=== PATIENT | female | born 1995 | race Caucasian/White ===

== ENCOUNTER 2024-01-27 16:07 | Inpatient (IN) ==
[2024-01-27] MEDS ORDERED: LIDOCAINE 1% LOCAL 20 ML VIAL INFIL PRN (16:12)
[2024-01-27] MEDS ORDERED: CALCIUM CARBONATE 500 MG CHEWABLE TAB PO PRN (16:12)
[2024-01-27] MEDS ORDERED: OXYTOCIN 30 UNITS/NSS 30 UNITS/500 ML BAG IV PRN (16:12)
--- NOTE | 2024-01-27 16:21 | History & Physical Report ---
Date of Service January 27, 2024 Assessment & Plan (1) Encounter for induction of labor: Plan: Admit for induction of labor Place denis balloon Pitocin arom when indicated consult for epidural placed monitor tracing, category 1 Admission and Anticipated Discharge Date Admission Date: January 27, 2024 History of Present Illness Primary Care Provider: Helena Churchill MD 28 yo at 41w2d admitted for IOL for post dates. Denies WILLS, CP, SOB, N/V/D, LE pain. GBS neg, RH+, Rubella immune, +FM, -LOF, +CTX Allergies Allergy/AdvReac Type Severity Reaction Status Date / Time No Known Allergies AdvReac Unknown Verified 01/26/24 10:47 Home Medications Medication Instructions Recorded Confirmed Type valacyclovir 500 mg tablet 500 mg PO TID PRN recurrent 11/18/20 01/26/24 History episodes aspirin 81 mg tablet,delayed 81 mg PO DAILY 05/26/23 01/26/24 History release (Adult Low Dose Aspirin) vit 168-iron 27 mg-folic cap PO 05/26/23 01/26/24 History acid 800 mcg-omega3 235 mg capsule (One-A-Day -1) metoclopramide HCl 10 mg tablet 10 mg PO Q6H PRN nausea and 08/05/23 01/26/24 Rx (Reglan) vomiting #7 tabs valacyclovir 500 mg tablet 500 mg PO BID #60 tabs 12/10/23 01/26/24 Rx (Valtrex) ondansetron HCl 4 mg tablet 4 mg PO Q6H PRN nausea and 12/17/23 01/26/24 Rx vomiting #30 tabs Patient History Medical History (Updated 01/27/24 @ 17:53 by Nadia Anaya MD) Nicotine addiction Hiccups Cerebral aneurysm Rhinitis Narcolepsy without cataplexy Surgical History (Updated 05/22/22 @ 09:53 by Helena Churchill MD) H/O inguinal hernia repair History of cerebral aneurysm Anterior Communicating Artery, s/p surgical repair Family History (Updated 05/26/23 @ 10:54 by Agustina Rendon) Grandmother (Paternal) Brain tumor Social History (Updated 05/26/23 @ 10:55 by Agustina Rendon) Smoking Status: Current every day smoker Tobacco Type: E-cigarettes / Vaping Cigarettes Per Day: 1 ppd; Second Hand Exposure: Yes; Do You Dip or Chew Tobacco: No; Tobacco Cessation Education Requested by Patient: No Hx Alcohol Use: No Hx Substance Use: No Preferred Language: Luxembourgish Communication Ability: Effective Project Product Manager Required: No Beliefs That Will Affect Care: None marital status: Single marital status details: Amanda (27) [phone] Current Living Situation: Significant Other Current Living Situation Comment: [facility] current occupational status: employed 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 Skin: warm, dry, intact HEENT: NC/AT, anicteric sclera, conjunctiva without injection, moist mucus membranes Heart: +S1/S2, regular, no m/r/g Lungs: equal air entry bilaterally, no rales/rhonchi/wheezes Abd: +BS, soft, NT, gravid uterus Cervical: see attending documentation Ext: warm, no clubbing/cyanosis or edema Neuro: nonfocal, speech intact, no facial droop, moving all extremities. : FHR baseline 130-140, moderate variability, accelerations present, decelerations absent Supervising Physician Co-Signing Physician Notes 28 yo at 41 2/7 wga presents for late term IOL. Started having some painful back ctx and small amount of bleeding. +FM; denies LOF. PNI: Hx HSV on valtrex, hx brain aneuysm s/p neuro surg - ok for vaginal delivery, narcolepsy. Fetus cat 1, irreg ctx. SSE no obvious hsv lesions, SVE 275/-2. EFW 7-8. 35cc denis bulb placed, will start pit. SSE benign, pt denies prodromal symptoms. GBS neg, epidural prn Resident Activity Tracking Resident Involvement: Resident Care Provided Care Provided: Adult [facility] Medicine
[2024-01-27 17:07] LABS: Hemoglobin 12.5 g/dl (12.0-16.0); Mean Corpuscular Hemoglobin 30.6 pg (25.0-34.0); Mean Corpuscular Hgb Conc 34.7 g/dL (32.0-36.0); Mean Platelet Volume 13.1 fL (9.4-12.4); Platelet Count 175 K/uL (130-400); RDW Coefficient of Variation 13.4 % (11.5-14.5); RDW Standard Deviation 43.2 fL (36.4-46.3); Red Blood Count 4.09 M/uL (4.20-5.40); White Blood Count 16.08 K/ul (4.8-10.8)
[2024-01-27] MEDS: LACTATED RINGER'S 1,000 ML IV PRN (17:50)
[2024-01-27] MEDS: ACETAMINOPHEN 325 MG TAB PO PRN (17:56)
[2024-01-27] MEDS: OXYTOCIN 30 UNITS/NSS 30 UNITS/500 ML BAG IV PRN (18:12)
[2024-01-27] MEDS ORDERED: diphenhydrAMINE 50 MG/ML VIAL IV PRN (18:55)
[2024-01-27] MEDS ORDERED: ROPIVACAINE 0.5% PF 5 MG/ML 20 ML VIAL EPI PRN (18:55)
[2024-01-27] MEDS ORDERED: NALBUPHINE HCL 5 MG in SYRINGE 0 ML IV PRN (18:55)
[2024-01-27] MEDS ORDERED: BUPIVACAINE 0.25% PF 30 ML VIAL EPI PRN (18:55)
[2024-01-27] MEDS ORDERED: LIDOCAINE 2% MPF LOCAL 5 ML VIAL EPI PRN (18:55)
[2024-01-27] MEDS ORDERED: NALOXONE HCL 0.4 MG/1 ML VIAL/CARP IV PRN (18:55)
[2024-01-27] MEDS ORDERED: fentANYL 2 MCG/ML BUPIVacaine 0.125%-NSS 100ML BAG EPI PRN (18:55)
[2024-01-27] MEDS ORDERED: ePHEDrine sulfate 50 MG/ML AMP IV PRN (18:55)
[2024-01-27] MEDS ORDERED: SODIUM CHLORIDE 0.9% PF INJ 10 ML VIAL EPI PRN (18:55)
[2024-01-27] MEDS ORDERED: fentaNYL citrate PF 100 MCG/2 ML VIAL EPI PRN (18:55)
[2024-01-27] MEDS ORDERED: NALOXONE HCL 1 MG in SODIUM CHLORIDE 0.9% 1,000 ML IV PRN (18:55)
--- NOTE | 2024-01-27 18:55 | Anesthesiology Consultation ---
Date of Service January 27, 2024 Assessment & Plan (1) Encounter for pre-operative examination: Chart Review Chart Review: Patient NOT seen in Pre Admission Testing and Acceptable Risk for Labor Epidural Consults Requested none History Height/Weight Height: 5 ft 4 in Weight: 81.647 kg Allergies Allergy/AdvReac Type Severity Reaction Status Date / Time No Known Allergies AdvReac Unknown Verified 01/26/24 10:47 Medications Home Medications Medication Instructions Recorded Confirmed Last Taken vit 168-iron 27 mg-folic cap PO 05/26/23 01/26/24 01/27/24 08:00 acid 800 mcg-omega3 235 mg capsule (One-A-Day -1) valacyclovir 500 mg tablet 500 mg PO BID #60 tabs 12/10/23 01/27/24 01/27/24 08:00 (Valtrex) Active Medications Generic Name Dose Route Start Last Admin Trade Name Freq PRN Reason Stop Dose Admin Acetaminophen 650 mg 01/27/24 16:12 01/27/24 17:56 Acetaminophen 325 Mg Tab PO 02/26/24 16:11 650 mg Q6H PRN Administration Pain Oxytocin 30 units in 500 mls @ 2 mls/hr 01/27/24 16:12 01/27/24 18:12 Pitocin 30 Units/Nss IV 01/29/24 16:11 0.12 units/hr .Q24H PRN 2 mls/hr Labor Induction/Augmentation Administration Protocol 0.12 UNITS/HR Lactated Ringer's 1,000 mls @ 125 mls/hr 01/27/24 16:12 01/27/24 18:30 Lr IV 01/29/24 16:11 999 mls/hr .Q8H PRN Infusion L&D Protocol Protocol Past Medical History Medical History Nicotine addiction Hiccups Cerebral aneurysm Rhinitis Narcolepsy without cataplexy Past Family History Family History Grandmother (Paternal) Brain tumor Past Surgical History Surgical History H/O inguinal hernia repair History of cerebral aneurysm Anterior Communicating Artery, s/p surgical repair Social History Smoking Status: Current every day smoker tobacco type: e-cigarettes Smoking cigarettes per day: 1 ppd Do You Dip or Chew Tobacco: No Hx Alcohol Use: No Hx Substance Use: No Physical Exam Vital Signs Last Vital Signs Temp 98.6 F 01/27/24 16:43 Pulse 72 01/27/24 18:52 Resp 18 01/27/24 16:43 BP 129/60 01/27/24 18:52 Pulse Ox 100 01/27/24 18:51 Testing Laboratory Results 01/27/24 16:34
[2024-01-27] MEDS: fentANYL 2 MCG/ML BUPIVacaine 0.125%-NSS 100ML BAG ONE (19:22)
[2024-01-27] MEDS: LIDOCAINE 2%/EPINEPHRINE 1:200,000 20 ML PF ONE (19:24)
[2024-01-27] MEDS: BUPIVACAINE 0.25% PF 30 ML VIAL ONE (20:08)
[2024-01-27] MEDS: fentaNYL citrate PF 100 MCG/2 ML VIAL ONE (20:10)
[2024-01-27] MEDS: ePHEDrine sulfate 50 MG/ML AMP ONE (20:10)
[2024-01-27] MEDS: SODIUM CHLORIDE 0.9% PF INJ 10 ML VIAL EPI STA (20:11)
[2024-01-27] MEDS: SODIUM CHLORIDE 0.9% PF INJ 10 ML VIAL ONE (20:11)
[2024-01-27] MEDS: fentaNYL citrate PF 100 MCG/2 ML VIAL EPI STA (20:11)
[2024-01-27] MEDS: BUPIVACAINE 0.25% PF 30 ML VIAL EPI STA (20:11)
[2024-01-27] MEDS: LIDOCAINE 2%/EPINEPHRINE 1:200,000 20 ML PF EPI STA (20:11)
--- NOTE | 2024-01-27 22:46 | Labor Progress Brief Note ---
Date of Service January 27, 2024 Subjective Comfortable w/ epidural Assessment & Plan (1) Encounter for induction of labor: (2) Post-term : Plan 28 yo at 41 2/7 wga presents for late term iol VSS Fetus cat 1 Labor - good progress, now s/p arom GBS neg epidural in place Admission and Anticipated Discharge Date Admission Date: January 27, 2024 Physical Exam Genitourinary: Manual OB Exam: + cervical dilation 5 cm, + cervical effacement 90%, + station -2 and + amniotic fluid clear OB Exam Monitor Tracing: + external FHT monitor used, + external uterine monitor used (q3-5) and + category I (135/mod/+accel/+early) Results & Data Vital Signs (Past 12 Hours) Vital Signs Temp Pulse Resp BP Pulse Ox 01/27/24 22:41 94 H 98 01/27/24 22:36 95 H 98 01/27/24 22:31 98 01/27/24 22:31 90 01/27/24 22:31 84 119/85 01/27/24 22:26 76 98 01/27/24 22:21 86 98 01/27/24 22:17 69 121/85 01/27/24 22:16 65 97 01/27/24 22:11 88 98 01/27/24 22:06 67 99 01/27/24 22:02 70 109/75 01/27/24 22:01 71 98 01/27/24 22:00 18 01/27/24 22:00 18 01/27/24 21:56 87 97 01/27/24 21:51 77 98 01/27/24 21:47 92 H 112/72 01/27/24 21:46 93 H 97 01/27/24 21:41 91 H 97 01/27/24 21:36 86 98 01/27/24 21:32 77 109/67 01/27/24 21:31 79 98 01/27/24 21:30 18 01/27/24 21:30 18 01/27/24 21:26 79 98 01/27/24 21:21 76 97 01/27/24 21:16 79 116/67 98 01/27/24 21:11 78 99 01/27/24 21:06 81 98 01/27/24 21:01 97 01/27/24 21:01 78 01/27/24 21:01 84 108/61 01/27/24 21:00 18 01/27/24 21:00 18 01/27/24 20:56 78 98 01/27/24 20:51 86 97 01/27/24 20:47 65 106/62 01/27/24 20:46 74 98 01/27/24 20:41 73 100 01/27/24 20:36 73 99 01/27/24 20:31 98 01/27/24 20:31 85 01/27/24 20:31 74 122/68 01/27/24 20:30 18 01/27/24 20:30 18 01/27/24 20:26 63 99 01/27/24 20:21 65 99 01/27/24 20:17 74 119/72 01/27/24 20:16 63 100 01/27/24 20:11 77 99 01/27/24 20:06 74 98 01/27/24 20:01 79 111/60 98 01/27/24 20:00 18 01/27/24 20:00 18 01/27/24 19:56 72 98 01/27/24 19:51 63 98 01/27/24 19:46 72 127/80 98 01/27/24 19:41 75 98 01/27/24 19:36 73 99 01/27/24 19:31 70 98 01/27/24 19:30 18 01/27/24 19:30 98.1 F 18 01/27/24 19:26 81 98 01/27/24 19:21 97 01/27/24 19:21 76 01/27/24 19:21 79 132/89 01/27/24 19:16 77 98 01/27/24 19:11 81 99 01/27/24 19:07 71 01/27/24 19:06 92 H 99 01/27/24 19:01 89 100 01/27/24 18:56 64 99 01/27/24 18:52 72 129/60 01/27/24 18:51 64 100 01/27/24 18:37 73 125/84 01/27/24 18:23 68 138/93 01/27/24 17:52 67 126/75 01/27/24 16:47 68 149/94 H 01/27/24 16:43 98.6 F 18 Coding Level of Care Code None Diagnoses Encounter for induction of labor Z34.90 Post-term O48.0
[2024-01-27] MEDS: FAMOTIDINE 20 MG TAB PO SCH (23:12)
--- NOTE | 2024-01-28 04:13 | Delivery Summary ---
Vaginal Delivery Summary Date of Service January 28, 2024 Vaginal Delivery Summary [facility] PREOPERATIVE DIAGNOSIS: 1. Single intrauterine at 41 3/7 wga 2. Late term IOL POSTOPERATIVE DIAGNOSIS: 1. Single intrauterine at 41 3/7 wga 2. Late term IOL 3. Delivered PROCEDURE: 1. Normal spontaneous vaginal delivery. SURGEON: Nadia Anaya MD ANESTHESIA: Epidural. ESTIMATED BLOOD LOSS: 72 mL FLUIDS: Continuous LR. URINE OUTPUT: None. COMPLICATIONS: None. CONDITION: Stable. INDICATIONS: 28 yo at 41 3/7 wga presents for late term iol. Has been on valtrex for hsv prophylaxis. Induction begun with denis bulb and pitocin. Following bulb expulsion, pitocin was titrated up. She received an epidural for pain control. She underwent arom. She progressed to complete and desired to push FINDINGS: A viable male infant, weight pending with Apgars of 8 and 9 at 1 and 5 minutes respectively. SPECIMEN: Cord blood OPERATIVE REPORT: The patient progressed to 10 cm, 100% effaced and +2 station, pushed over intact perineum with anesthesia to deliver a viable male infant, weight and Apgars as above. Head of delivered in JAZMINE position. Nuchal cord was present and reduced. Body and shoulders were delivered without difficulty. was delivered to maternal abdomen and nursing staff. Delayed cord clamping was performed for 60 seconds. Cord was clamped and cut. Cord blood was obtained. Placenta delivered spontaneously intact with 3-vessel cord. IV oxytocin and fundal massage were given for excellent hemostasis. Vagina, cervix, perineum, and placenta were inspected. A left vaginal laceration was repaired using 3-0 vicryl. Hemostatic bilateral periurethral lacerations were noted and not needed to be repaired. Sponge and needle counts correct x2. No sponges were left behind. Mother and stable in immediate period. [facility] [place] Vaginal Delivery Codes: 21700 global code for the antepartum, delivery, and post- Delivery Type Details: [facility]
[2024-01-28] MEDS ORDERED: HYDROCORTISONE ACETATE 25 MG SUPP PR PRN (04:57)
[2024-01-28] MEDS ORDERED: OXYTOCIN 30 UNITS/NSS 30 UNITS/500 ML BAG IV PRN (04:57)
[2024-01-28] MEDS ORDERED: ACETAMINOPHEN 325 MG TAB PO PRN (04:57)
[2024-01-28] MEDS: DIPHTHER/TETAN/PERTUS Vaccine (Tdap, Adol/Adult) 0.5mL IM ONE (05:11)
[2024-01-28] MEDS: IBUPROFEN 600 MG TAB PO PRN (05:45)
[2024-01-28] MEDS: BENZOCAINE 20% SPRY 85 APPLN/85 GM CAN EXT PRN (05:45)
--- NOTE | 2024-01-28 05:45 | Anesthesia Procedure Note ---
Date of Service January 28, 2024 Anesthesia Post Epidural Note Vital Signs Vital Signs: Temp Pulse Resp BP Pulse Ox 97.9 F 88 18 129/67 98 01/28/24 04:20 01/28/24 05:34 01/28/24 04:50 01/28/24 05:34 01/28/24 03:51 Notes Mental Status: alert / awake / arousable and participated in evaluation Nausea / Vomiting: adequately controlled Pain: adequately controlled Airway Patency, RR, SpO2: stable & adequate BP & HR: stable & adequate Hydration State: stable & adequate Neuraxial Anesthesia: was administered and sensory block is resolving Anesthetic Complications: no major complications apparent and Pt Satisfied with anesthetic care Epidural: Removed without complications and With tip intact
[2024-01-28] MEDS: DOCUSATE SODIUM 100 MG CAP PO SCH (07:45)
[2024-01-28] MEDS: PRENATAL VITAMIN 1 TAB PO SCH (07:45)
[2024-01-28] MEDS: FERROUS SULFATE 325 MG TAB PO SCH (07:45)
--- NOTE | 2024-01-29 07:04 | Obstetrical Progress Note ---
Date of Service January 29, 2024 Assessment & Plan (1) care following vaginal delivery: Plan Doing well Routine post care Anticipate DC tomorrow Admission and Anticipated Discharge Date Admission Date: January 27, 2024 Supervising Physician Co-Signing Physician Notes Resident Physician Supervision Note: I interviewed and examined the patient. Discussed with and agree with findings and plan as documented in the note. Any exceptions or clarifications are listed here: [None] Documented By: Lois Zamudio MD, FACOG Subjective 28 yo post day 1 s/p Ambulation: ambulating normally Voiding: no voiding problems Passing Gas:: Yes Diet Tolerance:: regular diet Lochia:: Small Feeding Type:: breast feeding Current Pain Level: minimal Resting comfortably this AM in NAD. Denies WILLS, CP, SOB, N/V/D, LE pain/swelling. Review of Systems Review of Systems: reviewed, per HPI Physical Exam Physical Exam: General: patient resting comfortably, NAD, non-toxic in appearance, answers questions appropriately. Skin: warm, dry, intact HEENT: NC/AT, anicteric sclera, conjunctiva without injection, moist mucus membranes. Heart: +S1/S2, regular, no m/r/g Lungs: equal air entry bilaterally, no rales/rhonchi/wheezes Abd: +BS, soft, NT/ND, uterine fundus firm at umbilicus. Ext: warm, no clubbing/cyanosis or edema, Boby's neg. Neuro: nonfocal, speech intact, no facial droop, moving all extremities. Results & Data Vital Signs (Past 12 Hours) Vital Signs Temp Pulse Pulse Resp BP Pulse Ox O2 Del Method 01/29/24 02:47 36.8 C 70 18 100/53 L 97 Room Air 01/28/24 23:19 37 C 61 18 124/80 97 Room Air 01/28/24 19:32 36.7 C 69 18 122/76 97 Room Air Resident Activity Tracking Resident Involvement: Resident Care Provided Care Provided: Adult Hospital Medicine
[2024-01-29] MEDS: bisacodyL 5 MG TABEC PO SCH (20:57)
[2024-01-30] MEDS ORDERED: bisacodyL 10 MG SUPP PR PRN
--- NOTE | 2024-01-30 08:29 | Obstetrical Progress Note ---
Date of Service January 30, 2024 Assessment & Plan (1) care following vaginal delivery: Day 2 status post vaginal delivery. Patient doing well. Stable for discharge. Subjective Ambulation: ambulating normally Voiding: no voiding problems Passing Gas:: Yes Diet Tolerance:: regular diet Lochia:: Moderate Feeding Type:: breast feeding Physical Exam Constitutional WD/WN, vitals as above Respiratory normal respiratory effort; no respiratory distress and no labored breathing Gastrointestinal (Abdomen) Inspection/Auscultation: abdomen normal to inspection; abdomen not distended Percussion/Palpation: abdomen soft; abdomen nontender, no guarding and abdomen not rigid Genitourinary OB Exam Abdomen: + fundal height Fundus: + firm and + relation to umbilicus (Below); not tender or not boggy Results & Data Vital Signs (Past 12 Hours) Vital Signs Temp Pulse Resp BP Pulse Ox O2 Del Method 01/30/24 07:25 36.6 C 64 16 122/78 98 Room Air 01/29/24 20:55 36.4 C L 72 18 127/80 97 Room Air
== END 2024-01-30 11:20 | disposition home or self-care (01) | DRG 807 ==
LOC: 4S1 16:07 → 4E2 01-28 06:59